=== PATIENT | female | born 1945 | race Caucasian/White ===

== ENCOUNTER 2018-04-16 10:52 | Emergency (ER) | payer MEDICARE ==
[~2018-04-16] VITALS: Ht 162.6 cm; Wt 71.8 kg
[2018-04-16] MEDS ORDERED: LEVO25TA9 PO (11:02)
[2018-04-16 11:06] VITALS: BP 138/84
[2018-04-16] MEDS: BACITRACIN 0.9 GM PACKET OINTMENT TP ONE (12:31)
[2018-04-16] MEDS: LIDOCAINE/PF 1% 5 ML VIAL INJ ONE (12:31)
[2018-04-16] MEDS: PERTUSS(ACELL),DIPH,TET VAC/PF 0.5 ML VIAL IM ONE (12:33)
== END 2018-04-16 13:23 | disposition home or self-care (01) ==
LOC: EMS 10:55
DX: S81.811A Laceration without foreign body, right lower leg, initial encounter (principal); E03.9 Hypothyroidism, unspecified; E89.0 Postprocedural hypothyroidism; Z90.49 Acquired absence of other specified parts of digestive tract; W25.XXXA Contact with sharp glass, initial encounter; Y93.H3 Activity, building and construction; Y92.098 Other place in other non-institutional residence as the place of occurrence of the external cause; Y99.8 Other external cause status
CPT/HCPCS: 12002; 73590; 90471; 90715; 99284; J3490